=== PATIENT | female | born 1940 | race Hispanic/Latino ===

== ENCOUNTER → 2019-10-19 | Day surgery (SDC) | payer MEDICARE ==
[~2019-10-19] MED LIST: ALENDRONATE SOD70 MG PO; LEVOTHYROXINE88 MCG PO; PROPOFOL IV EMULSION 10 MG/ML 50 ML VIAL ONE
[2019-10-19 13:05] LABS: BASOPHILS # (AUTO) 0.1 (0.0-0.1); BASOPHILS % 0.9 % (0.0-1.0); EOSINOPHILS # (AUTO) 0.1 (0.0-0.4); EOSINOPHILS % 1.1 % (0.0-6.0); HEMATOCRIT 38.1 % (34.2-44.1); HEMOGLOBIN 12.6 g/dL (12.0-16.0); LYMPHOCYTES # (AUTO) 1.7 (1.0-3.2); LYMPHOCYTES % 30.2 % (18.0-39.1); MEAN CORPUSCULAR HEMOGLOBIN 28.1 pg (28-32); MEAN CORPUSCULAR HGB CONC 33.1 g/dL (31-35); MEAN CORPUSCULAR VOLUME 84.9 fL (81-99); MONOCYTES # (AUTO) 0.9 (0.2-0.8); MONOCYTES % 16.5 % (4.4-11.3); NEUTROPHILS # (AUTO) 2.9 (2.1-6.9); NEUTROPHILS % 51.1 % (38.7-80.0); PLATELET COUNT 200 x10e3/uL (140-360); RED BLOOD COUNT 4.49 x10e6/uL (3.6-5.1); RED CELL DISTRIBUTION WIDTH 14.5 % (11.7-14.4)
[2019-10-19 15:50] VITALS: BP 139/74
== END | disposition home or self-care (01) ==
LOC: OR 11:13
PROVIDERS: ATTEND Internal Medicine Gastroenterology
DX: Z09 Encounter for follow-up examination after completed treatment for conditions other than malignant neoplasm (principal); K63.5 Polyp of colon; K57.30 Diverticulosis of large intestine without perforation or abscess without bleeding; K64.8 Other hemorrhoids; Z71.3 Dietary counseling and surveillance; E66.3 Overweight; Z68.26 Body mass index [BMI] 26.0-26.9, adult
CPT/HCPCS: 36415; 45385; 85025; 93005; J2704

== ENCOUNTER 2025-03-02 03:23 | Inpatient (IN) | payer MEDICARE ==
[2025-03-02] VITALS (8 sets, daily range): BP systolic 110–130; BP diastolic 58–73; PULSE 58–83; RESP 16–20; TEMP 97.4–98.4; O2SAT 93–96
[~2025-03-02] VITALS: Ht 157.5 cm; Wt 66.2 kg
[~2025-03-02 03:23] MED LIST changes: -PROPOFOL IV EMULSION 10 MG/ML 50 ML VIAL ONE
[2025-03-02 04:14] LABS: BASOPHILS % 0.9 % (0.0-1.0); EOSINOPHILS % 1.8 % (0.0-6.0); LYMPHOCYTES % 14.0 % (18.0-39.1); MONOCYTES % 8.6 % (4.4-11.3); NEUTROPHILS % 74.1 % (38.7-80.0); RED CELL DISTRIBUTION WIDTH 15.4 % (11.7-14.4)
[2025-03-02 04:29] LABS: LEUKOCYTE ESTERASE ,URINE TRACE (NEGATIVE); PROTEIN,URINE DIPSTICK NEGATIVE (NEGATIVE)
[2025-03-02 04:30] LABS: URINE UROBILINOGEN 0.2 mg/dL (0.2 - 1); WBC,URINE (MAN) 0-5 /HPF (0-5)
[2025-03-02] MEDS: ONDANSETRON HCL INJ 2MG/ML 2ML 2 MG/ML VIAL IV STA (04:30)
[2025-03-02] MEDS: Morphine 4mg INJECTION 4 MG/ML INJ IV STA (04:30)
[2025-03-02 04:31] LABS: EPITHELIAL CELLS,URINE FEW /LPF
[2025-03-02] MEDS: SODIUM CHLORIDE 0.9% 1000ML 1,000 ML IV STA (04:31)
[2025-03-02] MEDS: BELLADONNA ALK/PHENOBARBITAL 5 ML UDC PO ONE (04:31)
[2025-03-02] MEDS: LIDOCAINE VISC 2% SOLN 15 ML UDC PO STA (04:31)
[2025-03-02] MEDS: MAGNESIUM/ALUMINUM/SIMETHICONE 30 ML UDC PO STA (04:31)
[2025-03-02 04:43] LABS: EST GLOMERULAR FILTRATION RATE 87.0 ML/MIN (>=60)
[2025-03-02] MEDS: DILTIAZEM HCL 5 MG/ML 5 ML VIAL IV STA (04:49)
[2025-03-02] MEDS: DIGOXIN INJ 0.25 MG/ML 2 ML AMP IV STA (04:50)
[2025-03-02] MEDS: METOPROLOL TARTRATE INJ 1 MG/ML VIAL IV STA (04:51)
[2025-03-02] MEDS ORDERED: IOPAMIDOL 370 MG/ML 100 ML INFUS..BTL INJ ONE (05:02)
[2025-03-02] MEDS ORDERED: ONDANSETRON HCL INJ 2MG/ML 2ML 2 MG/ML VIAL IV PRN (07:26)
[2025-03-02] MEDS ORDERED: Morphine 4mg INJECTION 4 MG/ML INJ IV PRN ×2 (07:26)
[2025-03-02] MEDS ORDERED: GABAPENTIN300 MG (08:15)
[2025-03-02] MEDS: SODIUM CHLORIDE 0.9% 1000ML 1,000 ML IV SCH (08:20)
[2025-03-02] MEDS ORDERED: ENOXAPARIN SOD INJ 40 MG/0.4 ML SYR SC SCH (10:30)
[2025-03-02] MEDS ORDERED: LEVOTHYROXINE SODIUM 88 MCG TAB PO SCH (10:30)
[2025-03-02] MEDS ORDERED: ENOXAPARIN SOD INJ 60 MG/0.6 ML SYR SC SCH (11:00)
[2025-03-02] MEDS: LEVOTHYROXINE SODIUM 75 MCG TAB PO SCH (11:50)
[2025-03-02] MEDS: ENOXAPARIN INJ 80 MG/0.8 ML SYR SC SCH (11:50)
[2025-03-02] MEDS: POTASSIUM CHLORIDE 10MEQ EA PO ONE (11:50)
[2025-03-02] MEDS: FUROSEMIDE INJ 10 MG/ML 4 ML VIAL IV ONE (11:50)
[2025-03-02] MEDS: GABAPENTIN 300 MG CAP PO SCH (17:24)
[2025-03-03] VITALS (7 sets, daily range): BP systolic 120–139; BP diastolic 75–85; PULSE 64–98; RESP 16–18; TEMP 97.4–97.7; O2SAT 96–98
[2025-03-03 06:38] LABS: BASOPHILS % 0.9 % (0.0-1.0); EOSINOPHILS % 4.2 % (0.0-6.0); LYMPHOCYTES % 23.2 % (18.0-39.1); MONOCYTES % 9.6 % (4.4-11.3); NEUTROPHILS % 61.8 % (38.7-80.0); RED CELL DISTRIBUTION WIDTH 15.6 % (11.7-14.4)
[2025-03-03 08:06] LABS: EST GLOMERULAR FILTRATION RATE 87.0 ML/MIN (>=60)
[2025-03-03] MEDS: FUROSEMIDE 20 MG TAB PO SCH (09:02)
[2025-03-04] VITALS (8 sets, daily range): BP systolic 114–137; BP diastolic 64–79; PULSE 73–97; RESP 16–18; TEMP 97.7–98.3; O2SAT 95–98
[2025-03-04] MEDS: METOPROLOL SUCCINATE 25 MG TAB XL PO SCH (09:13)
[2025-03-04] MEDS: APIXABAN 5 MG TABLET PO SCH (09:13)
[2025-03-05] VITALS: BP 127/67; PULSE 77; RESP 18; TEMP 98.4; O2SAT 96
[2025-03-05 05:19] VITALS: BP 126/81; PULSE 86; RESP 18; TEMP 98.1; O2SAT 99
[2025-03-05 07:21] LABS: BASOPHILS % 0.7 % (0.0-1.0); EOSINOPHILS % 2.2 % (0.0-6.0); LYMPHOCYTES % 14.2 % (18.0-39.1); MONOCYTES % 8.5 % (4.4-11.3); NEUTROPHILS % 74.2 % (38.7-80.0); RED CELL DISTRIBUTION WIDTH 15.8 % (11.7-14.4)
[2025-03-05 08:00] VITALS: BP 155/85; PULSE 85; RESP 19; TEMP 97.1; O2SAT 98
[2025-03-05 08:00] LABS: EST GLOMERULAR FILTRATION RATE 87.0 ML/MIN (>=60)
[2025-03-05 08:16] VITALS: BP 155/85; PULSE 85; RESP 19; TEMP 97.1; O2SAT 98
[2025-03-05 08:25] LABS: PHOSPHORUS 3.1 MG/DL (2.3-4.7)
[2025-03-05] MEDS: PANTOPRAZOLE SOD 40 MG TABEC PO SCH (09:07)
[2025-03-05] MEDS: LOSARTAN POTASSIUM 25 MG TAB PO SCH (09:07)
[2025-03-05 12:02] VITALS: BP 128/87; PULSE 97; RESP 17; TEMP 98.5; O2SAT 98
[2025-03-06] MEDS ORDERED: LOSARTAN POTASSIUM 25 MG TAB PO SCH (09:00)
[2025-03-06] MEDS ORDERED: METOPROLOL SUCCINATE 25 MG TAB XL PO SCH (09:00)
== END 2025-03-05 14:20 | disposition home or self-care (01) | DRG 291 ==
LOC: ER 03:28 → ERHOLD 05:27 → MED/SURG3 06:55
PROVIDERS: ADMIT Internal Medicine; ATTEND Internal Medicine
DX: I11.0 Hypertensive heart disease with heart failure (principal); I50.31 Acute diastolic (congestive) heart failure; J18.9 Pneumonia, unspecified organism; J90 Pleural effusion, not elsewhere classified; J81.1 Chronic pulmonary edema; I48.20 Chronic atrial fibrillation, unspecified; I48.0 Paroxysmal atrial fibrillation; G62.9 Polyneuropathy, unspecified; I83.93 Asymptomatic varicose veins of bilateral lower extremities; D63.8 Anemia in other chronic diseases classified elsewhere; E03.9 Hypothyroidism, unspecified; M81.0 Age-related osteoporosis without current pathological fracture; M19.90 Unspecified osteoarthritis, unspecified site; G31.84 Mild cognitive impairment of uncertain or unknown etiology; I87.2 Venous insufficiency (chronic) (peripheral); R10.13 Epigastric pain; R11.2 Nausea with vomiting, unspecified; I16.0 Hypertensive urgency; K57.30 Diverticulosis of large intestine without perforation or abscess without bleeding; Z79.890 Hormone replacement therapy
CPT/HCPCS: 36415; 71250; 74177; 80048; 80053; 81001; 82550; 83690; 83735; 84100; 84443; 84484; 85025; 93005; 93306; 94799; 99284; J0696; J1160; J1650; J1938; J2270; J2405; J2470; J7030; Q9967